=== PATIENT | male | born 1980 | race Caucasian/White ===

== ENCOUNTER 2018-12-30 05:20 | Day surgery (SDC) | payer BC ==
[2018-12-26 16:18] LABS: HEMATOCRIT 39.8 % (42.0-54.0); HEMOGLOBIN 14.3 g/dL (13.5-17.5); MCH 31.9 pg (26.0-34.0); MCHC 35.9 g/dL (31.0-37.0); MCV 88.8 fL (80.0-100.0); MEAN PLATELET VOLUME 12.4 fL (7.4-10.4); RBC 4.48 10x6/uL (4.20-6.10); RDW 12.6 % (11.5-14.5); WBC 7.1 10x3/uL (4.8-10.8)
[2018-12-26 16:42] LABS: ANION GAP 15.3 mmol/L (8-16); CALCIUM 8.4 mg/dL (8.5-10.1); CARBON DIOXIDE 25.7 mmol/L (21.0-32.0); CREATININE - SERUM 1.2 mg/dL (0.6-1.3)
[~2018-12-30] VITALS: Ht 172.7 cm; Wt 115.7 kg
[~2018-12-30 05:20] MED LIST: GLUCOPHAGE XR750 MG PO; IBUPROFEN200 MG PO; LISINOPRIL20 MG PO; NORVASC5 MG PO; PRILOSEC20 MG PO; TORADOL10 MG PO
[2018-12-30] MEDS ORDERED: NEXIUM20 MG PO (06:14)
[2018-12-30 06:21] VITALS: BP 132/80; Ht 172.7 cm; Wt 115.7 kg
[2018-12-30] MEDS ORDERED: EMGALITY (06:33)
[2018-12-30] MEDS ORDERED: DURICEF500 MG PO (07:57)
[2018-12-30] MEDS ORDERED: HYDROCODON-ACE1 EAC2 PO (07:57)
--- NOTE | 2018-12-30 09:04 | NUR ---
0905 PT ASKING FOR PAIN MEDICATION. STATES HIS PAIN LEVEL IS A 6. NUMBNESS IS IN MIDDLE, RING, AND LITTLE FINGER/LEFT HAND. HE CAN FEEL TOUCH TO THOSE DIGITS. COLOR IS GOOD. ICE PACK REMAINS ON WRIST.
--- NOTE | 2018-12-30 09:53 | NUR ---
0982 PT STATES HE HAS RECEIVED A LITTLE RELIEF IN PAIN. NO SIDE EFFECTS FROM HYDROCODONE. IV DC'D. CATHETER INTACT. NO BLEEDING AT SITE AFTER HOLDING PRESSURE. BANDAID APPLIED.
--- NOTE | 2018-12-31 07:50 | OP ---
PATIENT NAME: MORELIA SMALL MEDICAL RECORD: [id number] :76 LOCATION:[facility] ADMISSION DATE: SURGEON: RENNY SHAH DO DATE OF OPERATION: 12/30/2018 PROCEDURE PERFORMED: Left endoscopic carpal tunnel release. PREOPERATIVE DIAGNOSIS: Left carpal tunnel syndrome. POSTOPERATIVE DIAGNOSIS: Left carpal tunnel syndrome. INDICATIONS: Mr. Small is a 38-year-old male that presented to my office with a nerve conduction study showing moderate carpal tunnel in the left wrist. We informed him of the risks and benefits of carpal tunnel release. Risks including damage to the nerve, continued numbness and tingling and need for further surgery as well as infection and bleeding. The benefits would be the pain would go away and would not wake him up at night and he was okay with that. 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 We will be endoscopically and it should get him back to work sooner. He signed the consent. SURGEON: Renny Shah DO DESCRIPTION OF PROCEDURE: The patient was taken to the operative suite, laid in supine position, given general anesthetic and LMA was placed. The left upper extremity was prepped and draped in sterile fashion. He was given 2 grams of Ancef. Timeout was performed, everyone was in agreement with the correct side, site, patient and procedure. The left upper extremity was then exsanguinated with an Esmarch and tourniquet was inflated to 250 mmHg, it was up for approximately 11 minutes. The incision then began over the wrist crease. Once the incision was made, blunt dissection was then carried out with John down to the carpal tunnel itself. The forearm fascia was released from distal to proximal at that time at the incision site to approximately 1 cm proximal to that and then the dilators were used to enter the carpal tunnel and the sheath was entered. The camera was then entered into the sheath and the probe and rasp were used to clean the transverse carpal ligament off. The blade was then brought in, elevated and transected the transverse carpal ligament. Fat had been herniated down into the carpal tunnel, indicating good release. Then released with a pickup and scissors the larger end of Jamar, ensured there were no remaining fibers using a scissors and spreading technique under direct loupe visualization. The tourniquet was then let down at 11 minutes. The site was injected then with 10 mL of 0.25% Marcaine with epinephrine and any bleeding was coagulated at that time with the bipolar and then the incision was closed with 5-0 Monocryl in an inverted interrupted fashion. Steri-Strips placed on that. Then, Adaptic, 4 x 4s, Kerlix, and Coban was lightly wrapped on the wrist. He was then awakened and taken to recovery in stable condition. BLOOD LOSS: Minimal. COMPLICATIONS: None. TRANSINT:[id number] Voice Confirmation ID: [id number] DOCUMENT ID: [id number] OPERATIVE REPORT [id number] MORELIA SMALL,RENNY Hayes DO at 0750 CC: [id number] DICTATION DATE: 12/30/18 075 NURSING EXECUTIVE: 12/30/18 1101 [facility] 12/30/18 [facility] [address] [place] [address]
== END 2018-12-30 09:59 | disposition home or self-care (01) ==
LOC: D.OPS 05:20 → D.PAN 07:00 → D.OPS 07:00
PROVIDERS: Anesthesiology; ATTEND Orthopaedic Surgery
DX: G56.02 Carpal tunnel syndrome, left upper limb (principal); Z01.812 Encounter for preprocedural laboratory examination